=== PATIENT | male | born 1955 ===

== ENCOUNTER 2023-08-25 16:39 | Emergency (ER) | payer MEDICARE ==
[2023-08-25 17:08] VITALS: RESP 18
[2023-08-25] MEDS ORDERED: FLUORESCEIN STRIPS 1 MG STRIP LEFT EYE ONE (17:50)
[2023-08-25] MEDS ORDERED: PROPARACAINE 0.5% OPHTH DROPS 15 ML BTL LEFT EYE STA (17:50)
[2023-08-25] MEDS ORDERED: CEPHALEXIN 500 MG CAP PO STA (17:52)
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
[2023-08-25] MEDS ORDERED: TOPICAL SKIN ADHESIVE 1 EACH AMP TOPICAL ONE (18:01)
[2023-08-25 18:54] VITALS: BP 150/69; PULSE 75; TEMP 98.7
== END 2023-08-25 18:48 | disposition home or self-care (01) ==
LOC: EC 16:39
DX: S00.81XA Abrasion of other part of head, initial encounter (principal); W22.8XXA Striking against or struck by other objects, initial encounter
CPT/HCPCS: 99283